=== PATIENT | male | born 1990 | race Caucasian/White ===

== ENCOUNTER 2018-08-23 08:15 | Emergency (ER) | payer OTHER ==
[2018-08-23 08:24] VITALS: BP 126/79
--- NOTE | 2018-08-23 10:03 | ER Document Report ---
HPI - HPI Patient complains to provider of: Insect bite Time Seen by Provider: 08/23/18 09:52 Onset: Last week Onset/Duration: Persistent, Worse Severity: Mild Pain Level: 2 Context: Patient presents to the emergency department with insect bite to his left lower leg. Reports he was running PT at [facility] last week when he noticed the bite. He reports areas increased in size and redness. He reports he squeezed it several times and got a large amount of pus out of the area. Denies tick bite. Denies fever vomiting diarrhea. Reports that this did not happen near water. Patient did go to his [facility] and he reports they told him to go see an urgent care. Patient is allergic to sulfa medications. Associated Symptoms: None Exacerbated by: Denies Relieved by: Denies Similar symptoms previously: Yes Recently seen / treated by doctor: Yes Past Medical History - General Information source: Patient - Social History Smoking Status: Never Smoker Frequency of alcohol use: None Drug Abuse: None [place]ation[place] [employer] [place] with: Family Family History: None Patient has suicidal ideation: No Patient has homicidal ideation: No - Past Medical History Cardiac Medical History: Denies: Hx Heart Attack, Hx Hypertension Pulmonary Medical History: Denies: Hx Asthma Neurological Medical History: Denies: Hx Cerebrovascular Accident, Hx Seizures Renal/ Medical History: Denies: Hx Peritoneal Dialysis GI Medical History: Denies: Hx Hepatitis, Hx Hiatal Hernia, Hx Ulcer Psychiatric Medical History: Reports: Hx Anxiety, Hx Bipolar Disorder, Hx Depression Infectious Medical History: Denies: Hx Hepatitis Past Surgical History: Reports: Hx Tonsillectomy. Denies: Hx Open Heart Surgery, Hx Pacemaker - Immunizations Immunizations up to date: Yes Hx Diphtheria, Pertussis, Tetanus Vaccination: Yes Vertical Provider Document - CONSTITUTIONAL Agree With Documented VS: Yes Exam Limitations: No Limitations General Appearance: WD/WN, No Apparent Distress - INFECTION CONTROL TRAVEL OUTSIDE OF THE [place] IN LAST 30 DAYS: No - HEENT HEENT: Atraumatic, Normocephalic, PERRLA. negative: Conjuctival Injection - NECK Neck: Normal Inspection, Supple. negative: Lymphadenopathy-Left, Lymphadenopathy-Right - RESPIRATORY Respiratory: Breath Sounds Normal, No Respiratory Distress - CARDIOVASCULAR Cardiovascular: Regular Rate, Regular Rhythm - MUSCULOSKELETAL/EXTREMETIES Musculoskeletal/Extremeties: MAEW, FROM, Non-Tender - NEURO Level of Consciousness: Awake, Alert, Appropriate Motor/Sensory: No Motor Deficit - DERM Integumentary: Warm, Dry, Abscess Adult Front & Back Diagram: 1 - small dark area (pinprick) surrounded by 3cm circular insect bite no induration no fluctuant Course - Re-evaluation Re-evalutation: 08/23/18 10:03 Area circled with surgical marker. Patient was instructed to monitor the site do not squeeze the area apply warm packs take medication as prescribed. He was instructed on signs and symptoms of allergic reaction to clindamycin. He was also instructed to follow-up with his [facility] for recheck. He verbalized understanding to all instructions. Dictation of this chart was performed using voice recognition software; therefore, there may be some unintended grammatical errors. - Vital Signs Vital signs: Temp Pulse Resp BP Pulse Ox 98.1 F 57 L 16 126/79 H 97 08/23/18 08:20 08/23/18 08:20 08/23/18 08:20 08/23/18 08:20 08/23/18 08:20 Discharge - Discharge Clinical Impression: Insect bite Qualifiers: Encounter type: initial encounter Site of insect bite: lower leg Laterality: left Qualified Code(s): S80.862A - Insect bite (nonvenomous), left lower leg, initial encounter Condition: Stable Disposition: HOME, SELF-CARE Instructions: Clindamycin ([facility]), Insect Bites ([facility]) Additional Instructions: *You have been treated for a infected insect bite *Take medication as prescribed *Monitor the site for signs of increasing infection such as increasing pain, redness, swelling, warmth *Keep the site clean, do not squeeze the site, apply warm packs *Follow up with your [facility] Monday for a recheck *Return to ED for signs of increasing infection, worsening condition, changes, needs Monitor your blood pressure. Your blood pressure was elevated today. This may be because you were anxious, in pain or because you need medication. It is important to follow up with your primary care provider for full evaluation. Prescriptions: Clindamycin HCl [Cleocin 300 mg Capsule] 300 mg PO QID #20 capsule Forms: Elevated Blood Pressure
== END 2018-08-23 10:14 | disposition home or self-care (01) ==
LOC: ER 08:15
DX: S80.862A Insect bite (nonvenomous), left lower leg, initial encounter (principal); W57.XXXA Bitten or stung by nonvenomous insect and other nonvenomous arthropods, initial encounter
CPT/HCPCS: 99281